=== PATIENT | male | born 1990 | race Caucasian/White ===

== ENCOUNTER 2017-11-05 00:46 | Emergency (ER) | payer MEDICAID, OTHER ==
[~2017-11-05] VITALS: Ht 167.6 cm; Wt 69.0 kg
[2017-11-05] MEDS ORDERED: SODIUM CHLORIDE 0.9% 1,000 ML IV ONE ×2 (02:54→05:00)
[2017-11-05] MEDS ORDERED: LORAZEPAM 1MG TABLET PO ONE (03:00)
[2017-11-05 03:10] LABS: BASOPHILS % 0.4 % (0.0-2.0); EOSINOPHILS % 0.4 % (0.0-5.0); HEMATOCRIT. 50.1 % (42.0-52.0); HEMOGLOBIN. 17.4 g/dL (14.0-18.0); MEAN CORPUSCULAR HEMOGLOBIN 29.5 pg (28.0-32.0); MEAN CORPUSCULAR VOLUME 85.1 fL (80.0-94.0); MEAN PLATELET VOLUME 7.3 fl (7.4-10.4); MONOCYTES % 8.6 % (2.0-8.0); NEUTROPHILS % 82.6 % (40.0-76.0); PLATELET 349 x1000/uL (130-400); RED BLOOD CELL COUNT 5.89 mill/uL (4.7-6.1)
[2017-11-05 03:23] LABS: CHLORIDE 106 mEq/L (98-107); ETHANOL BLOOD < 10 mg/dL
[2017-11-05 04:55] LABS: CLARITY URINE CLOUDY (CLEAR); COLOR URINE DARK YELLOW (YELLOW); KETONES URINE TRACE (NEGATIVE); LEUKOCYTE ESTERASE URINE NEGATIVE (NEGATIVE); NITRITE URINE NEGATIVE (NEGATIVE); OCCULT BLOOD URINE NEGATIVE (NEGATIVE); PROTEIN URINE 1+ (NEGATIVE); SPECIFIC GRAVITY URINE 1.036 (1.005-1.030)
[2017-11-05] MEDS ORDERED: LORAZEPAM 2MG/ML CPJ IV SCH (05:00)
[2017-11-05 05:08] LABS: *AMPHETAMINES SCREEN URINE PRESUMTIVE POSITIVE (NEGATIVE); *BARBITURATES SCREEN URINE NEGATIVE (NEGATIVE); *BENZODIAZEPINES SCREEN URINE NEGATIVE (NEGATIVE); *COCAINE SCREEN URINE PRESUMTIVE POSITIVE (NEGATIVE); CANNABINOID URINE SCREEN NEGATIVE (NEGATIVE); METHADONE URINE SCREEN NEGATIVE (NEGATIVE); OPIATES URINE SCREEN NEGATIVE (NEGATIVE); PHENCYCLIDINE URINE SCREEN NEGATIVE (NEGATIVE)
[2017-11-05 07:06] VITALS: BP 148/61
== END 2017-11-05 07:06 | disposition home or self-care (01) ==
LOC: ER 03:07
DX: F19.10 Other psychoactive substance abuse, uncomplicated (principal)
CPT/HCPCS: 36415; 80053; 80305; 81003; 85025; 96361; 96374; 99284; G0482; J2060; J7030; Z7610

== ENCOUNTER 2018-10-04 17:40 | Emergency (ER) | payer MEDICAID ==
[~2018-10-04] VITALS: Ht 170.2 cm; Wt 73.0 kg
[2018-10-04] MEDS ORDERED: LORAZEPAM 1MG TABLET PO ONE ×2 (20:00→21:45)
[2018-10-04] MEDS ORDERED: SODIUM CHLORIDE 0.9% 500 ML IV ONE (20:15)
[2018-10-04] MEDS ORDERED: KETOROLAC 15MG/ML VIAL IV ONE (20:15)
[2018-10-04] MEDS ORDERED: ACETAMINOPHEN 325MG TABLET PO ONE (21:45)
[2018-10-04] MEDS ORDERED: SODIUM CHLORIDE 0.9% 1,000 ML IV ONE (21:45)
[2018-10-04 23:16] VITALS: BP 127/70
== END 2018-10-04 23:32 | disposition home or self-care (01) ==
LOC: ER 17:40
DX: F14.151 Cocaine abuse with cocaine-induced psychotic disorder with hallucinations (principal); F14.188 Cocaine abuse with other cocaine-induced disorder; R00.2 Palpitations; R51 Headache; R03.0 Elevated blood-pressure reading, without diagnosis of hypertension; R11.0 Nausea
CPT/HCPCS: 70450; 93005; 96374; 99284; J1885; J7030; J7040; Z7610

== ENCOUNTER 2018-10-06 14:06 | Emergency (ER) | payer MEDICAID ==
[~2018-10-06] VITALS: Ht 172.7 cm; Wt 84.0 kg
[2018-10-06] MEDS ORDERED: LORAZEPAM 0.5MG TABLET PO ONE (17:00)
[2018-10-06] MEDS ORDERED: ALPRAZOLAM 0.5 MG TABLET PO ONE (17:15)
[2018-10-06 18:17] VITALS: BP 145/96
== END 2018-10-06 18:18 | disposition left against medical advice (07) ==
LOC: ER 14:11
DX: F14.180 Cocaine abuse with cocaine-induced anxiety disorder (principal); F17.210 Nicotine dependence, cigarettes, uncomplicated
CPT/HCPCS: 93005; 99283

== ENCOUNTER 2018-10-22 22:51 | Emergency (ER) | payer MEDICAID ==
[~2018-10-22] VITALS: Ht 177.8 cm; Wt 82.0 kg
[2018-10-22 22:57] VITALS: BP 192/107
== END 2018-10-23 02:00 | disposition left against medical advice (07) ==
LOC: ER 22:51
DX: Z53.21 Procedure and treatment not carried out due to patient leaving prior to being seen by health care provider (principal)

== ENCOUNTER 2019-10-29 20:56 | Emergency (ER) | payer MEDICAID ==
[~2019-10-29] VITALS: Ht 177.8 cm; Wt 88.0 kg
[2019-10-29 23:10] VITALS: BP 125/81
== END 2019-10-29 23:15 | disposition home or self-care (01) ==
LOC: ER 20:56
DX: H60.93 Unspecified otitis externa, bilateral (principal)
CPT/HCPCS: 99281

== ENCOUNTER 2020-04-30 17:13 | Emergency (ER) | payer MEDICAID ==
[~2020-04-30] VITALS: Ht 177.8 cm; Wt 90.7 kg
[2020-04-30] MEDS ORDERED: KETOROLAC 30MG/ML VIAL IV STA (18:04)
[2020-04-30] MEDS ORDERED: SODIUM CHLORIDE 0.9% 1,000 ML IV ONE (18:04)
[2020-04-30] MEDS ORDERED: ONDANSETRON HCL 4MG/2ML INJ IV STA (18:04)
[2020-04-30 18:43] LABS: BASOPHILS % 0.5 % (0.0-2.0); EOSINOPHILS % 0.6 % (0.0-5.0); HEMATOCRIT. 48.3 % (42.0-52.0); HEMOGLOBIN. 16.6 g/dL (14.0-18.0); LYMPHOCYTES % 16.4 % (20.0-50.0); MEAN CORPUSCULAR HEMOGLOBIN 28.8 pg (28.0-32.0); MEAN CORPUSCULAR VOLUME 84.2 fL (80.0-94.0); MEAN PLATELET VOLUME 7.4 fl (7.4-10.4); MONOCYTES % 9.3 % (2.0-8.0); NEUTROPHILS % 73.2 % (40.0-76.0); PLATELET 220 x1000/uL (130-400); RED BLOOD CELL COUNT 5.74 mill/uL (4.7-6.1); RED CELL DISTRIBUTION WIDTH 13.1 % (11.6-14.6)
[2020-04-30 18:47] LABS: CHLORIDE 109 mEq/L (98-107)
[2020-04-30 18:54] LABS: *AMPHETAMINES SCREEN URINE NEGATIVE (NEGATIVE); *BARBITURATES SCREEN URINE NEGATIVE (NEGATIVE); *BENZODIAZEPINES SCREEN URINE NEGATIVE (NEGATIVE); *COCAINE SCREEN URINE PRESUMTIVE POSITIVE (NEGATIVE); METHADONE URINE SCREEN NEGATIVE (NEGATIVE); OPIATES URINE SCREEN NEGATIVE (NEGATIVE)
[2020-04-30 18:55] LABS: CANNABINOID URINE SCREEN NEGATIVE (NEGATIVE); PHENCYCLIDINE URINE SCREEN NEGATIVE (NEGATIVE)
[2020-04-30 19:28] VITALS: BP 122/74
== END 2020-04-30 19:46 | disposition home or self-care (01) ==
LOC: ER 17:17
DX: R11.2 Nausea with vomiting, unspecified (principal); J45.909 Unspecified asthma, uncomplicated; R14.0 Abdominal distension (gaseous); R03.0 Elevated blood-pressure reading, without diagnosis of hypertension
CPT/HCPCS: 36415; 71045; 80053; 80305; 85025; 93005; 96361; 96374; 96375; 99285; J1885; J2405; J7030

== ENCOUNTER 2020-09-09 09:40 | Inpatient (IN) | payer MEDICAID ==
[~2020-09-09] VITALS: Ht 177.8 cm; Wt 88.0 kg
[2020-09-09] MEDS ORDERED: SODIUM CHLORIDE 0.9% 1,000 ML IV ONE ×2 (10:15→11:30)
[2020-09-09] MEDS ORDERED: LORAZEPAM 2MG/ML CPJ IV ONE ×3 (10:15→12:45)
[2020-09-09 11:37] LABS: BASOPHILS % 0.4 % (0.0-2.0); EOSINOPHILS % 0.3 % (0.0-5.0); HEMATOCRIT. 46.8 % (42.0-52.0); HEMOGLOBIN. 15.9 g/dL (14.0-18.0); LYMPHOCYTES % 9.9 % (20.0-50.0); MEAN CORPUSCULAR HEMOGLOBIN 28.2 pg (28.0-32.0); MEAN CORPUSCULAR VOLUME 82.9 fL (80.0-94.0); MEAN PLATELET VOLUME 7.2 fl (7.4-10.4); MONOCYTES % 9.9 % (2.0-8.0); NEUTROPHILS % 79.5 % (40.0-76.0); PLATELET 238 x1000/uL (130-400); RED BLOOD CELL COUNT 5.65 mill/uL (4.7-6.1); RED CELL DISTRIBUTION WIDTH 12.8 % (11.6-14.6)
[2020-09-09 11:45] LABS: CHLORIDE 110 mEq/L (98-107)
[2020-09-09 11:50] LABS: ETHANOL BLOOD < 10 mg/dL
[2020-09-09] MEDS ORDERED: POTASSIUM CHLORIDE 20MEQ TABLET SR PO ONE (12:00)
[2020-09-09 13:11] LABS: *BARBITURATES SCREEN URINE NEGATIVE (NEGATIVE)
[2020-09-09 13:12] LABS: *BENZODIAZEPINES SCREEN URINE NEGATIVE (NEGATIVE); *COCAINE SCREEN URINE NEGATIVE (NEGATIVE); CANNABINOID URINE SCREEN NEGATIVE (NEGATIVE); METHADONE URINE SCREEN NEGATIVE (NEGATIVE); OPIATES URINE SCREEN NEGATIVE (NEGATIVE); PHENCYCLIDINE URINE SCREEN NEGATIVE (NEGATIVE)
[2020-09-09 13:13] LABS: *AMPHETAMINES SCREEN URINE PRESUMTIVE POSITIVE (NEGATIVE)
[2020-09-09] MEDS ORDERED: ONDANSETRON HCL 4MG/2ML INJ IV PRN (14:00)
[2020-09-09] MEDS ORDERED: ACETAMINOPHEN 325MG TABLET PO PRN (14:00)
[2020-09-09] MEDS: LORAZEPAM 2MG/ML CPJ IV PRN (16:59)
[2020-09-09] MEDS ORDERED: HALOPERIDOL LACTATE 5MG/ML VIAL IM PRN (17:30)
[2020-09-09] MEDS ORDERED: DIPHENHYDRAMINE 50MG/ML VIAL IV PRN (17:30)
[2020-09-09] MEDS: DILTIAZEM HCL 30MG TABLET PO SCH ×2 (22:52→23:02)
[2020-09-10] MEDS: DILTIAZEM HCL 30MG TABLET PO SCH ×4 (06:00→23:13)
[2020-09-10 10:44] VITALS: BP 119/89
[2020-09-10 11:00] VITALS: BP 127/74
[2020-09-10 11:23] VITALS: BP 119/89
[2020-09-10] MEDS ORDERED: ALBU6.7H9 INH (11:35)
[2020-09-10 17:00] VITALS: BP 151/86
[2020-09-10 20:00] VITALS: BP 110/77
[2020-09-10 22:00] VITALS: BP 117/63
[2020-09-11] VITALS (9 sets, daily range): BP systolic 101–120; BP diastolic 58–70
[2020-09-11] MEDS: LORAZEPAM 2MG/ML CPJ IV PRN (02:51)
[2020-09-11] MEDS: DILTIAZEM HCL 30MG TABLET PO SCH ×2 (05:49→12:22)
[2020-09-11 06:55] LABS: CHLORIDE 106 mEq/L (98-107)
[2020-09-11 07:04] LABS: HEMOGLOBIN 15.9 g/dL (14.0-18.0); MEAN CORPUSCULAR HEMOGLOBIN 29.1 pg (28.0-32.0); MEAN CORPUSCULAR VOLUME 82.2 fL (80.0-94.0); PLATELET 220 x1000/uL (130-400); RED BLOOD CELL COUNT 5.47 mill/uL (4.7-6.1); RED CELL DISTRIBUTION WIDTH 12.6 % (11.6-14.6)
== END 2020-09-11 16:41 | disposition home or self-care (01) | DRG 201 ==
LOC: ER 09:46 → 3WST 12:40 → EDBEDREQ 12:42 → ENRESERV 09-10 09:58
PROVIDERS: ADMIT Internal Medicine; ATTEND Internal Medicine
DX: I47.1 Supraventricular tachycardia (principal); E87.6 Hypokalemia; I10 Essential (primary) hypertension; I16.0 Hypertensive urgency; G92 Toxic encephalopathy; F15.10 Other stimulant abuse, uncomplicated; J45.909 Unspecified asthma, uncomplicated; F32.9 Major depressive disorder, single episode, unspecified; D72.829 Elevated white blood cell count, unspecified; Z20.822 Contact with and (suspected) exposure to COVID-19; Z59.0 Homelessness
CPT/HCPCS: 36415; 71045; 80048; 80053; 80305; 80320; 83735; 83880; 84484; 85025; 85027; 87426; 93005; 93306; 99291; J1200; J1630; J2060; J7030; G0480

== ENCOUNTER 2021-07-24 14:50 | Emergency (ER) | payer MEDICAID ==
[~2021-07-24] VITALS: Ht 177.8 cm; Wt 91.0 kg
[~2021-07-24 14:50] MED LIST: ALBU6.7H9 INH
[2021-07-24 17:55] VITALS: BP 133/84
[2021-07-24] MEDS ORDERED: ONDANSETRON 4MG ODT PO STA (17:55)
[2021-07-24] MEDS ORDERED: IBUPROFEN 600MG TABLET PO STA (17:55)
[2021-07-24] MEDS ORDERED: MAGNESIUM/ALUMINUM HYDROXIDE/SIMETHICONE 30ML UDC PO STA (17:55)
[2021-07-24] MEDS ORDERED: ACETAMINOPHEN 325MG TABLET PO STA (17:55)
[2021-07-24] MEDS ORDERED: HYDR25SU37 RC (20:22)
== END 2021-07-24 20:34 | disposition home or self-care (01) ==
LOC: ER 14:50
DX: K52.9 Noninfective gastroenteritis and colitis, unspecified (principal); K64.9 Unspecified hemorrhoids; R00.0 Tachycardia, unspecified; I10 Essential (primary) hypertension; J45.909 Unspecified asthma, uncomplicated; F15.90 Other stimulant use, unspecified, uncomplicated
CPT/HCPCS: 99284; Q0162

== ENCOUNTER 2023-09-01 17:05 | Emergency (ER) | payer MEDICAID ==
[~2023-09-01] VITALS: Ht 177.8 cm; Wt 91.0 kg
[~2023-09-01 17:05] MED LIST changes: +ALBU6.7H3 INH; -ALBU6.7H9 INH; +HYDR25SU37 RC
[2023-09-01 17:25] VITALS: BP 137/81; PULSE 107; RESP 18; TEMP 98.8; O2SAT 99
[2023-09-01 20:16] LABS: BASOPHILS % 0.5 % (0.0-2.0); HEMATOCRIT. 49.1 % (42.0-52.0); HEMOGLOBIN. 16.6 g/dL (14.0-18.0); LYMPHOCYTES % 21.9 % (20.0-50.0); MEAN CORPUSCULAR HEMOGLOBIN 28.7 pg (28.0-32.0); MEAN CORPUSCULAR HGB CONC 33.8 g/dL (31.0-37.0); MEAN CORPUSCULAR VOLUME 84.7 fL (80.0-94.0); MEAN PLATELET VOLUME 7.4 fl (7.4-10.4); MONOCYTES % 9.3 % (2.0-8.0); NEUTROPHILS % 67.3 % (40.0-76.0); PLATELET 271 x1000/uL (130-400); WHITE BLOOD COUNT 9.1 x1000/uL (4.5-11.0)
[2023-09-01 20:32] LABS: ALANINE AMINOTRANSFERASE 25 IU/L (10-49); ALBUMIN 4.5 g/dL (3.2-4.8); ASPARTATE AMINOTRANSFERASE 31 IU/L (<34); BILIRUBIN TOTAL 0.6 mg/dL (0.1-1.0); CALCIUM 9.3 mg/dL (8.7-10.4); CARBON DIOXIDE 24 mEq/L (21-32); CHLORIDE 105 mEq/L (98-107); CREATININE 0.9 mg/dL (0.6-1.3); GLUCOSE 82 mg/dL (70-105); POTASSIUM 3.7 mEq/L (3.5-5.1); PROTEIN TOTAL 7.4 g/dL (6.0-8.3); SODIUM 140 mEq/L (136-145); UREA NITROGEN BLOOD 24 mg/dL (9-23)
== END 2023-09-02 04:24 | disposition left against medical advice (07) ==
LOC: ER 17:05
DX: R11.2 Nausea with vomiting, unspecified (principal); Z53.21 Procedure and treatment not carried out due to patient leaving prior to being seen by health care provider
CPT/HCPCS: 36415; 80053; 85025; 99281

== ENCOUNTER 2024-08-03 07:01 | Emergency (ER) | payer MEDICAID ==
[~2024-08-03] VITALS: Ht 172.7 cm; Wt 78.0 kg
[2024-08-03 07:02] VITALS: O2SAT 97
[2024-08-03] MEDS: SODIUM CHLORIDE 0.9% 1,000 ML IV ONE (08:04)
[2024-08-03 08:40] LABS: BASOPHILS % 0.4 % (0.0-2.0); EOSINOPHILS % 0.4 % (0.0-5.0); HEMATOCRIT. 48.3 % (42.0-52.0); HEMOGLOBIN. 16.5 g/dL (14.0-18.0); LYMPHOCYTES % 9.4 % (20.0-50.0); MEAN CORPUSCULAR HEMOGLOBIN 29.3 pg (28.0-32.0); MEAN CORPUSCULAR HGB CONC 34.2 g/dL (31.0-37.0); MEAN CORPUSCULAR VOLUME 85.7 fL (80.0-94.0); MEAN PLATELET VOLUME 7.5 fl (7.4-10.4); MONOCYTES % 10.7 % (2.0-8.0); NEUTROPHILS % 79.1 % (40.0-76.0); PLATELET 221 x1000/uL (130-400); RED BLOOD CELL COUNT 5.64 mill/uL (4.7-6.1); RED CELL DISTRIBUTION WIDTH 13.2 % (11.6-14.6); WHITE BLOOD COUNT 9.5 x1000/uL (4.5-11.0)
[2024-08-03 08:43] LABS: PROTHROMBIN TIME 11.3 sec (9.6-11.0)
[2024-08-03 08:54] LABS: CHLORIDE 106 mEq/L (98-107); POTASSIUM 3.9 mEq/L (3.5-5.1); SODIUM 140 mEq/L (136-145)
[2024-08-03 08:55] LABS: CALCIUM 9.4 mg/dL (8.7-10.4); CARBON DIOXIDE 23 mEq/L (21-32)
[2024-08-03 09:00] LABS: GLUCOSE 107 mg/dL (70-105); UREA NITROGEN BLOOD 18 mg/dL (9-23)
[2024-08-03 09:01] LABS: ACETAMINOPHEN < 2 ug/mL (10-30); TROPONIN I HIGH SENSITIVITY 7 ng/L (3.0-53)
[2024-08-03 09:44] LABS: ETHANOL BLOOD < 10 mg/dL (<10)
[2024-08-03] MEDS: LORAZEPAM 1MG TABLET PO ONE (13:00)
[2024-08-03 23:02] LABS: CLARITY URINE CLEAR (CLEAR); COLOR URINE YELLOW (YELLOW); GLUCOSE URINE NEGATIVE (NEGATIVE); KETONES URINE 2+ (NEGATIVE); LEUKOCYTE ESTERASE URINE NEGATIVE (NEGATIVE); NITRITE URINE NEGATIVE (NEGATIVE); OCCULT BLOOD URINE NEGATIVE (NEGATIVE); PH URINE 6.5 (4.5-8.0); PROTEIN URINE NEGATIVE (NEGATIVE); SPECIFIC GRAVITY URINE 1.031 (1.005-1.030)
[2024-08-03 23:13] LABS: *AMPHETAMINES SCREEN URINE NEGATIVE (NEGATIVE); *BARBITURATES SCREEN URINE NEGATIVE (NEGATIVE); *BENZODIAZEPINES SCREEN URINE NEGATIVE (NEGATIVE); *COCAINE SCREEN URINE PRESUMPTIVE POSITIVE (NEGATIVE); METHADONE URINE SCREEN NEGATIVE (NEGATIVE); OPIATES URINE SCREEN NEGATIVE (NEGATIVE)
[2024-08-03 23:14] LABS: CANNABINOID URINE SCREEN NEGATIVE (NEGATIVE); ECSTASY MDMA SCREEN URINE NEGATIVE (NEGATIVE); PHENCYCLIDINE URINE SCREEN NEGATIVE (NEGATIVE)
[2024-08-04 07:54] VITALS: BP 112/76; PULSE 66; RESP 18; TEMP 36.72516; O2SAT 98
== END 2024-08-04 13:38 | disposition home or self-care (01) ==
LOC: ER 07:01
DX: R00.2 Palpitations (principal); J45.909 Unspecified asthma, uncomplicated; F31.9 Bipolar disorder, unspecified; F20.9 Schizophrenia, unspecified; Z20.822 Contact with and (suspected) exposure to COVID-19
CPT/HCPCS: 80305; 80048; 81003; 80307; 80329; 80320; 85025; 85610; 84484; 36415; 71045; 93005; 96360; 96361; 99285; 87426; J7030; G0480

== ENCOUNTER 2024-09-26 08:09 | Emergency (ER) | payer BC, OTHER ==
[~2024-09-26] VITALS: Ht 170.2 cm; Wt 75.0 kg
[2024-09-26 08:10] VITALS: O2SAT 99
[2024-09-26] MEDS: IBUPROFEN 600MG TABLET PO ONE (09:41)
[2024-09-26 10:26] LABS: BASOPHILS % 0.8 % (0.0-2.0); EOSINOPHILS % 0.2 % (0.0-5.0); HEMATOCRIT. 49.2 % (42.0-52.0); HEMOGLOBIN. 16.8 g/dL (14.0-18.0); LYMPHOCYTES % 10.2 % (20.0-50.0); MEAN CORPUSCULAR HEMOGLOBIN 29.4 pg (28.0-32.0); MEAN CORPUSCULAR HGB CONC 34.1 g/dL (31.0-37.0); MEAN CORPUSCULAR VOLUME 86.1 fL (80.0-94.0); MEAN PLATELET VOLUME 7.1 fl (7.4-10.4); MONOCYTES % 10.8 % (2.0-8.0); PLATELET 228 x1000/uL (130-400); RED BLOOD CELL COUNT 5.71 mill/uL (4.7-6.1); RED CELL DISTRIBUTION WIDTH 13.5 % (11.6-14.6); WHITE BLOOD COUNT 10.9 x1000/uL (4.5-11.0)
[2024-09-26 10:42] LABS: CHLORIDE 105 mEq/L (98-107); POTASSIUM 4.1 mEq/L (3.5-5.1); SODIUM 139 mEq/L (136-145)
[2024-09-26 10:43] LABS: CALCIUM 9.3 mg/dL (8.7-10.4); CARBON DIOXIDE 26 mEq/L (21-32)
[2024-09-26 10:48] LABS: GLUCOSE 109 mg/dL (70-105); UREA NITROGEN BLOOD 19 mg/dL (9-23)
[2024-09-26] MEDS: ZIPRASIDONE MESYLATE 20MG/VIAL IM ONE (10:49)
[2024-09-26] MEDS: ZIPRASIDONE MESYLATE 20MG/VIAL IM NR (10:50)
[2024-09-26 10:51] LABS: ETHANOL BLOOD < 10 mg/dL (<10)
[2024-09-26 11:04] LABS: *AMPHETAMINES SCREEN URINE NEGATIVE (NEGATIVE); *BARBITURATES SCREEN URINE NEGATIVE (NEGATIVE); *BENZODIAZEPINES SCREEN URINE NEGATIVE (NEGATIVE); *COCAINE SCREEN URINE PRESUMPTIVE POSITIVE (NEGATIVE); ECSTASY MDMA SCREEN URINE NEGATIVE (NEGATIVE); METHADONE URINE SCREEN NEGATIVE (NEGATIVE); OPIATES URINE SCREEN NEGATIVE (NEGATIVE); PHENCYCLIDINE URINE SCREEN NEGATIVE (NEGATIVE)
[2024-09-26 11:05] LABS: CANNABINOID URINE SCREEN NEGATIVE (NEGATIVE)
[2024-09-26 11:32] LABS: CLARITY URINE CLEAR (CLEAR); COLOR URINE YELLOW (YELLOW); GLUCOSE URINE NEGATIVE (NEGATIVE); PROTEIN URINE TRACE (NEGATIVE); SPECIFIC GRAVITY URINE >=1.030 (1.005-1.030)
[2024-09-26 11:33] LABS: KETONES URINE 2+ (NEGATIVE); LEUKOCYTE ESTERASE URINE NEGATIVE (NEGATIVE); NITRITE URINE NEGATIVE (NEGATIVE); OCCULT BLOOD URINE NEGATIVE (NEGATIVE); UROBILINOGEN URINE 0.2 E.U./dL (0.2-1.0)
[2024-09-26 11:38] LABS: BACTERIA URINE FEW; RBC URINE NONE SEEN /hpf (0-2); SQUAMOUS EPITHELIAL CELL URINE NONE SEEN /lpf (RARE/1+); WBC URINE 0-2 /hpf (0-2); YEAST URINE NONE SEEN
[2024-09-27 06:04] VITALS: BP 118/84; PULSE 90; RESP 18; TEMP 36.9; O2SAT 99
== END 2024-09-27 11:45 | disposition home or self-care (01) ==
LOC: ER 08:12
DX: R45.851 Suicidal ideations (principal); F14.10 Cocaine abuse, uncomplicated; R07.9 Chest pain, unspecified; Z79.899 Other long term (current) drug therapy; Z20.822 Contact with and (suspected) exposure to COVID-19
CPT/HCPCS: 80305; 80048; 81003; 80307; 80329; 80320; 85025; 36415; 96372; 99285; 87426; J3486; G0480